=== PATIENT | male | born 1970 ===

== ENCOUNTER 2020-09-24 11:44 | Emergency (ER) | payer MEDICAID, SELFPAY ==
--- NOTE | ~2020-09-24 | XR_ITS ---
EXAMINATION: XR CHEST CLINICAL INFORMATION: Cough. COMPARISON: None TECHNIQUE: Frontal view of the chest was obtained. FINDINGS: Lungs are well-expanded and clear of acute process. The heart size and pulmonary vascularity is normal. There is change link plate stabilizing left clavicular fracture. Rest of the visualized bones are grossly unremarkable. XR/XR chest 1V IMPRESSION: Unremarkable chest exam.
--- NOTE | ~2020-09-24 | CT_ITS ---
EXAMINATION: CT ABDOMEN AND PELVIS WITHOUT CONTRAST CLINICAL INFORMATION: Gross hematuria COMPARISON: None TECHNIQUE: Multidetector volumetric imaging was performed from the superior aspect of the liver through the pubic symphysis. Sagittal and coronal reformatted images were obtained on the technologist's workstation. This CT examination was performed using dose optimization techniques as appropriate, variously including the following: *Automated exposure control *Adjustment of mA and/or kV according to patient size (this includes techniques or standardized protocols for targeted exams where dose is matched to indication/reason for exam; i.e. extremities or head) *Use of iterative reconstruction technique DLP: 5-5 mGy-cm FINDINGS: LUNG BASES: The visualized lung bases are unremarkable. LIVER, GALLBLADDER, AND BILIARY TREE: The liver is normal in size, shape, and attenuation. No focal hepatic lesion or biliary ductal dilatation is present. The gallbladder is unremarkable with no evidence of radiopaque gallstones, gallbladder wall thickening, or obvious pericholecystic inflammatory changes. PANCREAS: Unremarkable. SPLEEN: Unremarkable. ADRENAL GLANDS: Unremarkable. KIDNEYS AND URETERS: There are 2 tiny left renal stones measuring 1 mm in the upper and lower pole of the left kidney. No right renal stone is seen. No hydronephrosis, ureteral stone or ureteral dilatation is seen. BLADDER: Not optimally distended. There is question of mild diffuse bladder wall thickening. No bladder stone is seen. GASTROINTESTINAL TRACT: The small and large bowel are unremarkable. The appendix is unremarkable. ABDOMINAL WALL: There is a small left inguinal hernia containing fat. There is a small umbilical hernia containing fat. LYMPH NODES: Normal. VASCULAR: There is evidence of atherosclerotic disease. No aneurysm is seen. PELVIC VISCERA: Unremarkable. OSSEOUS STRUCTURES: There is a mild old-appearing L2 vertebral body compression fracture. CT/CT abdomen pelvis wo con IMPRESSION: 2 small nonobstructing left renal stones. Question mild diffuse bladder wall thickening.
[2020-09-24 11:59] VITALS: BP 144/87; PULSE 84; RESP 16; TEMP 36.6; O2SAT 94; BMI 29.0
--- NOTE | 2020-09-24 14:01 | ED_ITS ---
HPI - Male Genitourinary General Chief complaint: Urogenital-Male Stated complaint: blood in urine, swollen rt eye Time Seen by Provider: 09/24/20 12:06 Source: patient Mode of arrival: ambulatory History of Present Illness HPI Narrative: 50-year-old male with a past medical history of ETOH abuse drink about a pt daily presenting to the ED complaining of hematuria since yesterday with bright red clots. Denies taking anticoagulation. Also reports right eye erythema/soreness and greenish discharge x a couple days. Also reports getting over a cold with dry cough/congestion and wheezing. Denies fever, chills, chest pain/shortness of breath, abdominal pain, nausea/vomiting, dysuria, flank pain, testicular pain, visual change/loss, trauma Patient wears glasses not contacts Related Data Previous Rx's Medication Instructions Recorded albuterol sulfate 2 puff INHALATION Q4-6H PRN #6.7 g 09/24/20 cefuroxime axetil 250 mg PO BID 7 Days #14 tab 09/24/20 polymyxin B sulf-trimethoprim 1 drp OPHTHALMIC (EYE) Q4H 7 Days 09/24/20 [Polytrim] #10 ml Allergies Allergy/AdvReac Type Severity Reaction Status Date / Time UNKNOWN ANTIBIOTIC Allergy Unknown Hives Uncoded 09/24/20 12:04 Review of Systems Review of Systems: Constitutional: No Fever, No Chills, No Fatigue, No Malaise ENT/Mouth: No Ear Pain, + Nasal Congestion, No Sinus Pain, No sore throat, + Rhinorrhea, No Swallowing Difficulty Eyes: + Eye Pain, No Swelling, + Redness, No Foreign Body, + Discharge, No Vision Changes Cardiovascular: No Chest Pain, No SOB, No Edema Respiratory: + Cough, No Sputum, + Wheezing Gastrointestinal: No Nausea, No Vomiting, No Diarrhea, No Constipation, No Abdominal pain Genitourinary: + irregular bleeding, No Dysuria, No Urinary Frequency, + Hematuria, No Flank Pain, No Urinary Flow Changes Musculoskeletal: No joint pain, No Myalgias Skin: No Skin Lesions, No rash Neuro: No Weakness, No Numbness, No Dizziness, No Headache Yes all other systems are reviewed and are negative PMFSH Past Medical History Attestation statement: The following information was validated with the patient. Medical History (Updated 09/24/20 @ 17:04 by MYA Burkett) No known health problems Social History Social History Advance Directives: No Advance Directives Information Provided: No Physical Exam Vital Signs: Vital Signs: Last Vital Signs Temp 98.5 F 09/24/20 15:42 Pulse 80 09/24/20 15:42 Resp 14 09/24/20 15:42 BP 136/80 09/24/20 15:42 Pulse Ox 95 09/24/20 15:42 Body Mass Index 29.0 Const: General: cooperative, healthy appearing and no acute distress Orien tation/consciousness: patient oriented x3 Limitations: no limitations HENMT: Head: Yes normal to inspection Ears: hearing grossly normal bilaterally General nose exam: Normal external nose present Face and sinus: Yes normal facial exam Eyes: General: appearance normal, both eyes and all related structures Pe riorbital: periorbital findings normal Conjunctivae: conjunctival abnormal right conjunctival chemosis, conjunctival injection diffuse and discharge purulent; without subconjunctival hemmorhages Corneas: fluorescein used; normal corneas Pupils: Equal, round and reactive pupils present EOM: EOMs intact bilaterally Direct Ophthalmoscopy: normal light reflex and no photophobia Neck: Neck: Yes normal visual inspection and Yes no meningeal signs Resp: Effort & Inspection: normal respiratory effort Auscultation: clear to auscultation bilaterally and wheezes (Slight end-expiratory wheeze bibasilar) Cardio: Rate: regular rate Heart sounds: S1 normal heart sound present and S2 normal heart sound present GI: Inspection: Yes normal to inspection Palpation (GI): Soft to palpation, nontender, no guarding and not rigid : General: Yes no CVA tenderness Back/Spine/Pelvis: Back: no CVA tenderness Skin: Rashes: no rashes Wounds: no wounds Neuro: General: patient oriented x3, tone normal and no meningeal signs Cranial nerves: Yes Equal, round and reactive pupils present Gait exam (Neuro): Normal gait present Extrem: General: Yes normal to inspection Course Course Course Narrative: -no leukocytosis, H&H stable, coags WNL -UA with RBCs, not infected > will obtain CT to rule out obstruction/stone XR chest 1V IMPRESSION: Unremarkable chest exam. -COVID-19 negative -1657 CT abdomen pelvis wo con IMPRESSION: 2 small nonobstructing left renal stones. Question mild diffuse bladder wall thickening. >> discussed with patient including worrisome signs and symptoms and strict return precautions. Patient given 1st dose of Ceftin in the ED. He verbalized understanding & feels safe for discharge MDM - Male Genitourinary MDM Narrative Medical decision making narrative: 50-year-old male with a past medical history of ETOH abuse drink about a pt daily presenting to the ED complaining of hematuria since yesterday with bright red clots. Also reports right eye erythema/soreness and irritation x a couple days. On exam VS as, NAD, nontoxic, lungs with slight bibasilar end-expiratory wheeze. Right eye consistent with bacterial conjunctivitis, no evidence of fluorescein uptake. Urine dark/with hematuria, abdomen soft/nontender, no CVAT. Concern for HELIO vs rhabdo vs ?Renal stone although less likely without pain. Rule out other metabolic abnormalities. Rule out pneumonia vs viral syndrome/COVID-19. Plan: Labs, UA, CT NG, CXR, COVID-19 testing, neb treatment tx, fluorescein staining Lab Data Result diagrams: 09/24/20 15:13 09/24/20 15:13 Labs: Lab Results 09/24/20 09/24/20 09/24/20 Range/Units 15:08 15:08 15:08 WBC (4.8-10.8) X10*3/uL RBC (4.60-5.80) X10*6/uL Hgb (14.0-18.0) g/dl Hct (42-52) % MCV (80-98) fL MCH (27.0-33.0) pg MCHC (31.0-36.0) g/dl RDW (11.0-16.0) % Plt Count (160-400) X10*3/uL MPV (9.4-12.4) fL Immature Gran % (Auto) (0.0-0.4) % Neut % (Auto) (45-73) % Lymph % (Auto) (20-40) % [place] % (Auto) (2-11) % Eos % (Auto) (0-4) % Baso % (Auto) (0-2) % Lymph # (Auto) (1.2-4.9) X10*3/uL [place] # (Auto) (0.1-1.2) X10*3/uL Eos # (Auto) (0.0-0.4) X10*3/uL Baso # (Auto) (0.0-0.2) X10*3/uL Abs Immat Gran (auto) (0.00-0.03) X10*3/uL Absolute Neuts (auto) (2.0-8.3) X10*3/uL Absolute Nucleated RBC (0.0-0.012) X10*3/uL Nucleated RBC % (auto) (0.0-0.2) /100WBC PT (10.8-13.0) SEC INR (0.9-1.1) APTT (24.1-38.0) SEC Sodium (135-145) mmol/L Potassium (3.3-5.1) mmol/L Chloride (96-108) mmol/L Carbon Dioxide (22-29) mmol/L Anion Gap (12-20) BUN (9-16) mg/dL Creatinine (0.5-1.4) mg/dL Estim Creat Clear Calc Estimated GFR Random Glucose (60-115) mg/dL Calcium (8.4-10.2) mg/dL Magnesium (1.6-2.6) mg/dL Total Bilirubin (0.0-1.0) mg/dL Direct Bilirubin (0.0-0.5) mg/dL AST (5-37) U/L ALT (0-40) U/L Alkaline Phosphatase (39-117) U/L Total Creatine Kinase (38-174) U/L Total Protein (6.5-8.0) g/dL Albumin (3.5-5.0) g/dL Urine Color YELLOW Urine Appearance CLEAR Urine pH 6.0 (5.0-8.0) Ur Specific [place] 1.025 (1.005-1.025) Urine Protein 1+ H (NEG-TRACE) MG/DL Urine Glucose (UA) NEG (NEG) MG/DL Urine Ketones 40 (NEG) MG/DL Urine Blood 3+ H (NEG) Urine Nitrite NEG (NEG) Ur Leukocyte Esterase NEG (NEG) Urine RBC 10-14 H (0) /HPF Urine WBC 1-4 (0-4) /HPF Ur Squamous Epith Cells 1+ /LPF Urine Bacteria NONE /LPF Urine Opiates Screen Not Detected (Not Detect) Ur Barbiturates Screen Not Detected (Not Detect) Ur Phencyclidine Scrn Not Detected (Not Detect) Ur Amphetamines Screen Not Detected (Not Detect) U Benzodiazepines Scrn Not Detected (Not Detect) Urine Cocaine Screen Not Detected (Not Detect) U Marijuana (THC) Screen Not Detected (Not Detect) COVID-19 (CELESTE) Negative (Negative) COVID-19 Clin Com See Note 09/24/20 09/24/20 09/24/20 Range/Units 15:13 15:13 15:13 WBC 9.2 (4.8-10.8) X10*3/uL RBC 4.32 L (4.60-5.80) X10*6/uL Hgb 16.4 (14.0-18.0) g/dl Hct 46.4 (42-52) % MCV 107.4 H (80-98) fL MCH 38.0 H (27.0-33.0) pg MCHC 35.3 (31.0-36.0) g/dl RDW 13.8 (11.0-16.0) % Plt Count 291 (160-400) X10*3/uL MPV 9.0 L (9.4-12.4) fL Immature Gran % (Auto) 0.3 (0.0-0.4) % Neut % (Auto) 62.2 (45-73) % Lymph % (Auto) 26.0 (20-40) % [place] % (Auto) 8.5 (2-11) % Eos % (Auto) 2.2 (0-4) % Baso % (Auto) 0.8 (0-2) % Lymph # (Auto) 2.4 (1.2-4.9) X10*3/uL [place] # (Auto) 0.8 (0.1-1.2) X10*3/uL Eos # (Auto) 0.2 (0.0-0.4) X10*3/uL Baso # (Auto) 0.1 (0.0-0.2) X10*3/uL Abs Immat Gran (auto) 0.03 (0.00-0.03) X10*3/uL Absolute Neuts (auto) 5.7 (2.0-8.3) X10*3/uL Absolute Nucleated RBC 0.000 (0.0-0.012) X10*3/uL Nucleated RBC % (auto) 0.0 (0.0-0.2) /100WBC PT 11.5 (10.8-13.0) SEC INR 1.0 (0.9-1.1) APTT 32.6 (24.1-38.0) SEC Sodium 141 (135-145) mmol/L Potassium 4.2 (3.3-5.1) mmol/L Chloride 103 (96-108) mmol/L Carbon Dioxide 25 (22-29) mmol/L Anion Gap 17 (12-20) BUN 16 (9-16) mg/dL Creatinine 1.01 (0.5-1.4) mg/dL Estim Creat Clear Calc 87.7 Estimated GFR > 60 Random Glucose 92 (60-115) mg/dL Calcium 9.4 (8.4-10.2) mg/dL Magnesium 1.9 (1.6-2.6) mg/dL Total Bilirubin 0.8 (0.0-1.0) mg/dL Direct Bilirubin 0.3 (0.0-0.5) mg/dL AST 33 (5-37) U/L ALT 26 (0-40) U/L Alkaline Phosphatase 101 (39-117) U/L Total Creatine Kinase (38-174) U/L Total Protein 7.4 (6.5-8.0) g/dL Albumin 4.4 (3.5-5.0) g/dL Urine Color Urine Appearance Urine pH (5.0-8.0) Ur Specific [place] (1.005-1.025) Urine Protein (NEG-TRACE) MG/DL Urine Glucose (UA) (NEG) MG/DL Urine Ketones (NEG) MG/DL Urine Blood (NEG) Urine Nitrite (NEG) Ur Leukocyte Esterase (NEG) Urine RBC (0) /HPF Urine WBC (0-4) /HPF Ur Squamous Epith Cells /LPF Urine Bacteria /LPF Urine Opiates Screen (Not Detect) Ur Barbiturates Screen (Not Detect) Ur Phencyclidine Scrn (Not Detect) Ur Amphetamines Screen (Not Detect) U Benzodiazepines Scrn (Not Detect) Urine Cocaine Screen (Not Detect) U Marijuana (THC) Screen (Not Detect) COVID-19 (CELESTE) (Negative) COVID-19 Clin Com 09/24/20 Range/Units 15:13 WBC (4.8-10.8) X10*3/uL RBC (4.60-5.80) X10*6/uL Hgb (14.0-18.0) g/dl Hct (42-52) % MCV (80-98) fL MCH (27.0-33.0) pg MCHC (31.0-36.0) g/dl RDW (11.0-16.0) % Plt Count (160-400) X10*3/uL MPV (9.4-12.4) fL Immature Gran % (Auto) (0.0-0.4) % Neut % (Auto) (45-73) % Lymph % (Auto) (20-40) % [place] % (Auto) (2-11) % Eos % (Auto) (0-4) % Baso % (Auto) (0-2) % Lymph # (Auto) (1.2-4.9) X10*3/uL [place] # (Auto) (0.1-1.2) X10*3/uL Eos # (Auto) (0.0-0.4) X10*3/uL Baso # (Auto) (0.0-0.2) X10*3/uL Abs Immat Gran (auto) (0.00-0.03) X10*3/uL Absolute Neuts (auto) (2.0-8.3) X10*3/uL Absolute Nucleated RBC (0.0-0.012) X10*3/uL Nucleated RBC % (auto) (0.0-0.2) /100WBC PT (10.8-13.0) SEC INR (0.9-1.1) APTT (24.1-38.0) SEC Sodium (135-145) mmol/L Potassium (3.3-5.1) mmol/L Chloride (96-108) mmol/L Carbon Dioxide (22-29) mmol/L Anion Gap (12-20) BUN (9-16) mg/dL Creatinine (0.5-1.4) mg/dL Estim Creat Clear Calc Estimated GFR Random Glucose (60-115) mg/dL Calcium (8.4-10.2) mg/dL Magnesium (1.6-2.6) mg/dL Total Bilirubin (0.0-1.0) mg/dL Direct Bilirubin (0.0-0.5) mg/dL AST (5-37) U/L ALT (0-40) U/L Alkaline Phosphatase (39-117) U/L Total Creatine Kinase 132 (38-174) U/L Total Protein (6.5-8.0) g/dL Albumin (3.5-5.0) g/dL Urine Color Urine Appearance Urine pH (5.0-8.0) Ur Specific [place] (1.005-1.025) Urine Protein (NEG-TRACE) MG/DL Urine Glucose (UA) (NEG) MG/DL Urine Ketones (NEG) MG/DL Urine Blood (NEG) Urine Nitrite (NEG) Ur Leukocyte Esterase (NEG) Urine RBC (0) /HPF Urine WBC (0-4) /HPF Ur Squamous Epith Cells /LPF Urine Bacteria /LPF Urine Opiates Screen (Not Detect) Ur Barbiturates Screen (Not Detect) Ur Phencyclidine Scrn (Not Detect) Ur Amphetamines Screen (Not Detect) U Benzodiazepines Scrn (Not Detect) Urine Cocaine Screen (Not Detect) U Marijuana (THC) Screen (Not Detect) COVID-19 (CELESTE) (Negative) COVID-19 Clin Com Discharge Plan Discharge Clinical Impression: Hematuria, Bacterial conjunctivitis of right eye Patient Disposition: Home, Self-Care Instructions: Hematuria (ED) Additional Instructions: Your blood work was reassuring today in the ED Your CT scan showed 2 small stones and your left kidney, non complicated and did show bladder wall thickening, due to this I will treat you for a urinary tract infection, 2nd is an antibiotic, take as prescribed In addition have bacterial conjunctivitis, Polytrim are eyedrops, take as prescribed It is important for you to follow-up with her primary care doctor as well as a urologist If her symptoms persist or worsen, become more constant, have abdominal pain, chest pain, shortness breath please return to the ED Use inhaler as needed at home Prescriptions: New polymyxin B sulf-trimethoprim [Polytrim] 10,000 unit- 1 mg/mL drops 1 drp ophthalmic (eye) Q4H 7 Days Qty: 10 RF: 0 cefuroxime axetil 250 mg tablet 250 mg PO BID 7 Days Qty: 14 RF: 0 albuterol sulfate 90 mcg/actuation HFA aerosol inhaler 2 puff inhalation Q4-6H PRN (Reason: shortness of breath or wheezing) Qty: 6.7 RF: 0 Referrals: Socrates Mendoza MD [Physician] - 1 week Physician,Unknown [Primary Care Provider] - 2 days
[2020-09-24] MEDS: Albuterol Sulfate (0.083%) 2.5 MG/3 ML VIAL.NEB INHALE (14:22)
[2020-09-24 14:24] VITALS: PULSE 72; O2SAT 95
[2020-09-24 15:13] LABS: Glucose Urine UA NEG (NEG); Leukocyte Esterase Urine NEG (NEG); Nitrite Urine NEG (NEG); Specific Gravity - Urine 1.025 (1.005-1.025); Urine Blood 3+ (NEG); Urine Ketones 40 MG/DL (NEG); Urine Protein 1+ MG/DL (NEG-TRACE)
[2020-09-24] MEDS: Benzonatate 100 MG CAPSULE 200 MG PO (15:15)
[2020-09-24 15:18] LABS: MANUAL DIFF FLAG NO
[2020-09-24 15:19] LABS: Basophils Absolute Auto 0.1 X10*3/uL (0.0-0.2); Basophils Percent Auto 0.8 % (0-2); Eosinophils Absolute Auto 0.2 X10*3/uL (0.0-0.4); Eosinophils Percent Auto 2.2 % (0-4); Hematocrit 46.4 % (42-52); Hemoglobin 16.4 g/dl (14.0-18.0); Imm Gran Abs Auto 0.03 X10*3/uL (0.00-0.03); Imm Gran Pct Auto 0.3 % (0.0-0.4); Lymphocytes Absolute Auto 2.4 X10*3/uL (1.2-4.9); Mean Corpuscular HGB Conc 35.3 g/dl (31.0-36.0); Mean Corpuscular Volume 107.4 fL (80-98); Monocytes Absolute Auto 0.8 X10*3/uL (0.1-1.2); Monocytes Percent Auto 8.5 % (2-11); Neutrophils Absolute Auto 5.7 X10*3/uL (2.0-8.3); Neutrophils Percent Auto 62.2 % (45-73); Platelet Count 291 X10*3/uL (160-400); Red Blood Count 4.32 X10*6/uL (4.60-5.80); Red Cell Distribution Width 13.8 % (11.0-16.0); White Blood Count 9.2 X10*3/uL (4.8-10.8)
[2020-09-24 15:20] LABS: Appearance Urine CLEAR; Color Urine YELLOW
[2020-09-24] MEDS: Fluorescein Sodium STRIP 1 STRIP EYE-RIGHT (15:22)
[2020-09-24] MEDS: Tetracaine HCl/PF 0.5% Oph Sol 4 ML DROPS 3 DROP EYE-RIGHT (15:22)
[2020-09-24 15:24] LABS: Squamous Epithelial Cell Urine 1+ /LPF
[2020-09-24] MEDS: 0.9 % Sodium Chloride 1,000 ML 999 ML IVCONT ×2 (15:25)
[2020-09-24 15:33] LABS: COVID-19 Test Negative (Negative); IDNOW Serial# 9DD0AD1C
[2020-09-24 15:42] VITALS: BP 136/80; PULSE 80; RESP 14; TEMP 36.9; O2SAT 95
[2020-09-24 15:42] LABS: Prothrombin Time 11.5 SEC (10.8-13.0)
[2020-09-24 15:44] LABS: Partial Thromboplastin Time 32.6 SEC (24.1-38.0)
[2020-09-24 15:46] LABS: Amphetamine Screen Urine Not Detected (Not Detect); Barbiturates, Urine Not Detected (Not Detect); Benzodiazepines Screen Urine Not Detected (Not Detect); Cannabinoid Screen Urine Not Detected (Not Detect); Cocaine Screen Urine Not Detected (Not Detect); Opiate Screen Urine Not Detected (Not Detect); Phencyclidine Screen Urine Not Detected (Not Detect)
[2020-09-24 16:06] LABS: Alanine Aminotransferase 26 U/L (0-40); Albumin Level 4.4 g/dL (3.5-5.0); Alkaline Phosphatase 101 U/L (39-117); Anion Gap 17 (12-20); Aspartate Amino Transferase 33 U/L (5-37); Bilirubin Direct 0.3 mg/dL (0.0-0.5); Bilirubin Total 0.8 mg/dL (0.0-1.0); Blood Urea Nitrogen 16 mg/dL (9-16); Calcium 9.4 mg/dL (8.4-10.2); Carbon Dioxide 25 mmol/L (22-29); Chloride 103 mmol/L (96-108); Creatinine Clr Calc Pharmacy 87.7; Estimated Glomerular Filt Rate > 60; Glucose Random 92 mg/dL (60-115); Magnesium 1.9 mg/dL (1.6-2.6); Potassium 4.2 mmol/L (3.3-5.1); Sodium 141 mmol/L (135-145); Total Protein 7.4 g/dL (6.5-8.0)
== END 2020-09-24 17:16 | disposition home or self-care (01) ==
PROVIDERS: Physician Assistant; Emergency Provider Emergency Medicine
DX: R31.9 Hematuria, unspecified (principal); B99.9 Unspecified infectious disease; H10.89 Other conjunctivitis; F10.10 Alcohol abuse, uncomplicated; Z20.822 Contact with and (suspected) exposure to COVID-19
CPT/HCPCS: 36415; 71045; 74176; 80048; 80076; 80307; 81001; 82550; 83735; 85025; 85610; 85730; 87635; 94640; 96360; 99284

== ENCOUNTER 2022-11-24 11:59 | Emergency (ER) | payer OTHER, SELFPAY ==
--- NOTE | ~2022-11-24 | XR_ITS ---
Examination: Right ankle and right foot. CLINICAL INDICATION: Pain. COMPARISON: None. TECHNIQUE: Right foot 3 views. Right ankle 2 views. FINDINGS: Right ankle: The ankle mortise and subtalar joints are normal. There is no visible acute fracture, dislocation or subluxation. No soft tissue normality. Small calcaneal heel spur is seen. RIGHT FOOT: The visualized bones and joints are maintained normal. No visible fracture, dislocation or bony erosive changes. The soft tissues are normal. A small calcaneal heel enthesophyte is seen XR/XR foot RT 2V IMPRESSION: Small calcaneal heel enthesophyte. No visible acute fracture or dislocation right ankle right foot.
--- NOTE | ~2022-11-24 | XR_ITS ---
Examination: Right ankle and right foot. CLINICAL INDICATION: Pain. COMPARISON: None. TECHNIQUE: Right foot 3 views. Right ankle 2 views. FINDINGS: Right ankle: The ankle mortise and subtalar joints are normal. There is no visible acute fracture, dislocation or subluxation. No soft tissue normality. Small calcaneal heel spur is seen. RIGHT FOOT: The visualized bones and joints are maintained normal. No visible fracture, dislocation or bony erosive changes. The soft tissues are normal. A small calcaneal heel enthesophyte is seen XR/XR ankle RT 2V IMPRESSION: Small calcaneal heel enthesophyte. No visible acute fracture or dislocation right ankle right foot.
[2022-11-24 12:05] VITALS: BP 141/84; PULSE 95; RESP 18; TEMP 37.4; O2SAT 96; BMI 31.3
--- NOTE | 2022-11-24 12:08 | ED.GENADULT ---
HPI - General Adult General Chief complaint: Extremity Injury, Lower Stated complaint: R ankle fracture Time Seen by Provider: 11/24/22 12:38 Source: patient Mode of arrival: ambulatory Limitations: no limitations History of Present Illness HPI narrative: Patient is a 52-year-old male presenting to the emergency department with right lateral ankle and foot pain after jumping off 4-5 steps last night. Patient admits to drinking alcohol last night. States he has been able ambulate on his foot with some pain. Denies any numbness or tingling. MD complaint: right ankle pain Onset (ago): hour(s) Location: lower extremity Radiation: non-radiation Severity: moderate Quality: aching Pain Consistency: intermittent Relieving factors: rest Exacerbating factors: movement Associated symptoms: denies other symptoms Treatments prior to arrival: none Related Data Previous Rx's Medication Instructions Recorded albuterol sulfate 90 mcg/actuation 2 puff inhalation Q4-6H PRN 09/24/20 aerosol inhaler shortness of breath or wheezing #6.7 grams cefuroxime axetil 250 mg tablet 250 mg PO BID 7 days #14 tabs 09/24/20 polymyxin B sulfate 10,000 1 drp ophthalmic (eye) Q4H 7 days 09/24/20 unit-trimethoprim 1 mg/mL eye #10 mL drops (Polytrim) Allergies Allergy/AdvReac Type Severity Reaction Status Date / Time UNKNOWN ANTIBIOTIC Allergy Unknown Hives Uncoded 09/24/20 12:04 Review of Systems Review of Systems: As per HPI. Yes all other systems are reviewed and are negative Constitutional: Constitutional: Reports as per HPI [facility] Past Medical History Medical History (Updated 11/24/22 @ 14:14 by Judy Mi NP) No known health problems Social History Social History Advance Directives: No Advance Directives Information Provided: Yes Physical Exam ED Vital Signs: Vital Signs - 24 hr 11/24/22 12:05 Temperature 99.4 F Pulse Rate 95 Respiratory Rate 18 Blood Pressure 141/84 H Pulse Oximetry 96 Oxygen Delivery Method Room Air BMI result Body Mass Index 31.3 Vital signs have been reviewed and appear to be correct. Blood pressure normal. Heart rate normal. Respiratory rate normal. Temperature normal. Oxygen saturation normal. Const General: cooperative, healthy appearing and no acute distress Orientation/consciousness: oriented to person, oriented to place, oriented to time and patient oriented x3 Limitations: no limitations [facility] Head: Yes normocephalic and Yes atraumatic Ears: external ears normal General nose exam: Normal external nose present Face and sinus: Yes face symmetric Mouth: oropharynx normal and moist mucous membranes Throat: Yes uvula midline Eyes Pupils: Equal, round and reactive pupils present Neck Neck: Yes normal visual inspection and Yes supple Resp Effort & Inspection: normal respiratory effort and able to speak in complete sentences Auscultation: clear to auscultation bilaterally Cardio Rate: regular rate Rhythm: regular rhythm Heart sounds: S1 normal heart sound present and S2 normal heart sound present GI Palpation (GI): Soft to palpation and nontender Auscultation: normoactive bowel sounds General: Yes no CVA tenderness Back/Spine/Pelvis Back: no CVA tenderness Skin General skin exam: elasticity normal and turgor normal Neuro General: oriented to person, oriented to place, oriented to time, patient oriented x3, moves all extremities, no focal motor deficits and CN's II-XI intact bilaterally Cranial nerves: Yes Equal, round and reactive pupils present Cognition (Neuro): normal cognition Extrem General: Yes full ROM, Yes no pedal edema and Yes no calf tenderness Right lower extremity: ankle Details: tenderness Location: of the lateral malleolus and foot Details: normal capillary refill, tenderness Location: of the dorsal foot Location: laterally, toes with normal ROM, ecchymosis dorsal lateral mid , vascular exam Details: dorsalis pedis pulse present and posterior tibial pulse present and motor-sensory exam Details: two point discrimination normal and light-touch normal; no abrasion and no crepitus Psych Mental Status: mental status grossly normal Affect: normal affect Thought process: Normal thought process present Course Course Course Narrative: RME: 52 yold male presents to the ED for right ankle pain. patient states he jumped from 4 stairs up and landed on right foot and hear crack in right ankle. patient denies hitting head, loss of consciosuness, or body trauma. patient states he was playing game with girlfriend and jumped to suprise her. Xray of right ankle and foot ordered Medical Decision Making Medical Decision Making MDM Narrative: Patient is a 52-year-old male presenting to the emergency department with right lateral ankle and foot pain after jumping off 4-5 steps last night. On exam patient is awake, A+Ox3, VS WNL, afebrile, normal neurological exam without focal deficits, mild swelling to right lateral ankle, tenderness to lateral malleolus and foot with ecchymosis and tenderness to dorsal lateral aspect of right foot, full range of motion all toes, 2+ DP and PT pulses. Given reported symptoms and physical exam findings, initial differential includes fracture, strain, sprain, contusion. X-ray notable for no acute fracture or dislocation. My interpretation is in agreement with the radiologist's interpretation. Feel symptoms are likely related to an ankle sprain and muscle strain of right foot. Advised patient to keep foot elevated at rest, apply ice for 10-15 minutes at a time several times daily. [place] wrap applied in the emergency department. Can use Tylenol or ibuprofen as needed for discomfort. Will refer patient to Orthopedics for any symptoms persisting past the next 1-2 weeks. Return precautions discussed at bedside. Patient verbalized understanding of and agreement with plan. Differential Diagnosis Differential Diagnoses: The differential diagnosis associated with the presentation includes As per MDM. Independent Interpretation I performed an independent interpretation of an: Plain X-Ray Interpretation: No fracture dislocation right foot or ankle Radiology Impression Discussion of test interpretation with radiology: I have reviewed the radiologist's reading. Radiologist Impression: XR/XR ankle RT 2V IMPRESSION: Small calcaneal heel enthesophyte. No visible acute fracture or dislocation right ankle right foot. External Record Review External record reviewed: Inpatient record, Office record and Outpatient record Discharge Plan Discharge Clinical Impression: Right ankle sprain, Muscle strain of right foot Patient Disposition: Home, Self-Care Instructions: Ankle Sprain (DC), How to Use an Elastic Bandage (ED), R.I.C.E. Treatment (ED) Additional Instructions: You have been evaluated in the emergency department today for right ankle and foot pain. Your evaluation did not find evidence of medical conditions requiring emergent intervention at this time. We have provided an [place] wrap for you to use while your ankle heals. Please rest, ice, and elevate your ankle, and resume normal activities as tolerated. We recommend you take 600mg ibuprofen every 6 hours or 650mg Tylenol every 6 hours as needed for pain. If needed you can alternate these medications as they take 1 medication every 3 hours. For instance at noon take ibuprofen, then at 3:00 p.m. take Tylenol, then at 6:00 p.m. take ibuprofen. Please schedule an appointment for follow-up with your primary care provider this week. Return to the emergency department if you experience worsening pain, numbness, tingling, change of color in your foot, or any other concerning symptoms. Please follow-up with the orthopedic office if your symptoms persist past the next 1-2 weeks. Prescriptions: No Action polymyxin B sulf-trimethoprim [Polytrim] 10,000 unit- 1 mg/mL drops 1 drp ophthalmic (eye) Q4H 7 Days Qty: 10 0RF Rx Instructions: while awake; do not exceed 6 doses in 24 hours cefuroxime axetil 250 mg tablet 250 mg PO BID 7 Days Qty: 14 0RF albuterol sulfate 90 mcg/actuation HFA aerosol inhaler 2 puff inhalation Q4-6H PRN (Reason: shortness of breath or wheezing) Qty: 6.7 0RF Referrals: [facility] [place] [facility] [Provider Group] Interventions: ED Discharge Assessment Last Done: 11/24/22 14:30 Discharge Date/Time: 11/24/22 14:30
== END 2022-11-24 14:30 | disposition home or self-care (01) ==
PROVIDERS: Emergency Provider Emergency Medicine
DX: S93.401A Sprain of unspecified ligament of right ankle, initial encounter (principal); S96.911A Strain of unspecified muscle and tendon at ankle and foot level, right foot, initial encounter; M25.571 Pain in right ankle and joints of right foot; X58.XXXA Exposure to other specified factors, initial encounter; Y93.9 Activity, unspecified; Y92.9 Unspecified place or not applicable; Y99.9 Unspecified external cause status; Z79.899 Other long term (current) drug therapy
CPT/HCPCS: 73600; 73620; 99282; 99283

== ENCOUNTER 2023-06-03 17:26 | Observation (INO) | payer OTHER, SELFPAY ==
--- NOTE | ~2023-06-03 | MR_ITS ---
EXAMINATION: MR BRAIN WITHOUT AND WITH CONTRAST CLINICAL INFORMATION: Question stroke versus intracranial neoplasm. COMPARISON: CT dated 06/03/2023. TECHNIQUE: Multiplanar, multisequence imaging of the brain was performed before and after the intravenous administration of 10 mL of Gadavist. FINDINGS: There is chronic encephalomalacia and mild laminar necrosis in the inferior left occipital lobe. No mass effect or pathologic enhancement otherwise visible. No diffusion abnormalities are identified to suggest an acute infarct. The ventricles are normal in size. No mass effect or midline shift is seen. Minimal scattered white matter signal changes are visible. No extra-axial fluid collections are seen. The brainstem and cerebellum are normal. There is no abnormal parenchymal or leptomeningeal enhancement. The gradient refocused acquisition is normal. The craniovertebral junction, marrow signal, and midline structures are normal. The major intracranial flow voids at the level of the [place] are preserved. The dural venous sinus flow voids are maintained. There is trace fluid in the mastoid air cells. Significant ethmoid sinus mucosal disease noted bilaterally with milder mucosal thickening elsewhere in the paranasal sinuses. MR/MR head/brain wo/w con IMPRESSION: No acute process. 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 Severe ethmoid sinus mucosal disease. Mild mucosal thickening and dependent fluid level in the right maxillary antrum.
--- NOTE | ~2023-06-03 | CT_ITS ---
EXAMINATION: CT ANGIOGRAM HEAD CT ANGIOGRAM NECK CLINICAL INFORMATION: Reason for Exam Geoffrey's (left pupil small), MOHAN, occip infarct COMPARISON: Same-day CT head TECHNIQUE: Initial noncontrast machine joiner cementer imaging of the head and neck was performed. Comparison is made with noncontrast head CT from earlier today. Test bolus sequences followed by intravenous administration 65 mL of Omnipaque 350. Helical imaging was performed in the axial plane from the aortic arch to the skull vertex. Delayed postcontrast imaging of the head was also performed. The data was processed at the cat scan technologist's workstation for generation of MIP sequences. Angled MIPs and volume rendered reformatted images were also generated at an offline 3D workstation. Stenoses are assessed in accordance with Narvaez et al. Quantification of Carotid Stenosis on CT Angiography. AJR 2006. 27(1):13-19. [address] CT examination was performed using dose optimization techniques as appropriate, variously including the following: *Automated exposure control *Adjustment of mA and/or kV according to patient size (this includes techniques or standardized protocols for targeted exams where dose is matched to indication/reason for exam; i.e. extremities or head) *Use of iterative reconstruction technique DLP: 1664.65 mGy-cm mGy-cm FINDINGS: CT HEAD: Redemonstrated hypodensity in the left cerebellar hemisphere which may represent an area of subacute infarction. No depressed calvarial fracture. Chronic deformity of the right zygomatic arch. Polypoid mucosal thickening in the paranasal sinuses with near complete opacification of the anterior ethmoid air cells. Trace opacification of the right mastoid tip. Please see separately dictated CT scan of the head for additional findings. CTA HEAD: Anterior circulation: Right internal carotid artery: Atherosclerosis without flow-limiting stenosis. Right middle cerebral artery: No hemodynamically significant stenosis. Right anterior cerebral artery: No hemodynamically significant stenosis. Left internal carotid artery: Atherosclerosis without flow-limiting stenosis. There is mild nonspecific circumferential narrowing at the distal cervical segment extending into the petrous segment which may be secondary to atherosclerosis or sequela of prior injury.. Left middle cerebral artery: No hemodynamically significant stenosis. Left anterior cerebral artery: No hemodynamically significant stenosis. Posterior circulation: Right vertebral artery: No hemodynamically significant stenosis. Left vertebral artery: No hemodynamically significant stenosis. Basilar artery: No hemodynamically significant stenosis. Right posterior cerebral artery: No hemodynamically significant stenosis. Left posterior cerebral artery: No hemodynamically significant stenosis. No high flow vascular malformation or significant aneurysmal dilatation is visualized. The left transverse and sigmoid sinuses are likely congenitally small in caliber. CTA NECK: Aortic arch: Normal anatomy. Right common carotid artery: No hemodynamically significant stenosis. Right proximal internal carotid artery: Atherosclerosis without flow-limiting stenosis. Right mid/distal internal carotid artery: No hemodynamically significant stenosis. Left common carotid artery: No hemodynamically significant stenosis. Left proximal internal carotid artery: Atherosclerosis without flow-limiting stenosis. There is severe narrowing in the proximal left external carotid artery. Left mid/distal internal carotid artery: No hemodynamically significant stenosis. Right vertebral artery: No hemodynamically significant stenosis. Left vertebral artery: Mild to moderate narrowing at the origin. The remaining cervical course is without flow-limiting stenosis. CT NECK: Mild emphysematous changes of the lung apices. Fixation hardware along the left clavicle. [place] tonsilliths are noted. Paranasal sinus polypoid mucosal thickening. Multilevel degenerative changes of the cervical spine. CT/CT angio head neck IMPRESSION: CT HEAD: Redemonstrated age indeterminate loss of ho-white differentiation in the left occipital lobe. Correlation with MRI is recommended. CTA NECK: Severe narrowing at the left external carotid artery origin. Otherwise, no flow-limiting stenosis in the common carotid arteries, internal carotid arteries, and cervical vertebral arteries. CTA HEAD: No proximal vessel occlusion or high-grade stenosis.
--- NOTE | ~2023-06-03 | CT_ITS ---
EXAMINATION: CT HEAD WITHOUT CONTRAST CLINICAL INFORMATION: New onset headache for one week. COMPARISON: None TECHNIQUE: Contiguous axial imaging was performed from the skull base to vertex without intravenous administration of contrast. This CT examination was performed using dose optimization techniques as appropriate, variously including the following: *Automated exposure control *Adjustment of mA and/or kV according to patient size (this includes techniques or standardized protocols for targeted exams where dose is matched to indication/reason for exam; i.e. extremities or head) *Use of iterative reconstruction technique DLP: 707 mGy-cm FINDINGS: Age indeterminate hypodensity in the left occipital lobe measuring up to 5 cm. No significant associated mass effect. No intraparenchymal bleed. A few foci of hypoattenuation in the periventricular and deep white matter are consistent with mild microangiopathy. Proportional prominence of the ventricles and sulcal spaces. No evidence for obstructive hydrocephalus. No abnormal mass effect or midline shift. No extra-axial fluid collections. No acute soft tissue or osseous abnormalities. Partial opacification of several ethmoid air cells. Mild mucosal thickening of the paranasal sinuses. No air-fluid levels. The mastoids and middle ear cavities are clear. CT/CT head/brain wo IV con IMPRESSION: 1. Age indeterminate hypodensity in the left occipital lobe, possibly representing an infarct versus less likely intracranial neoplasm. Recommend further characterization with an MRI of the brain. 2. No intraparenchymal bleed. No extra-axial collection. 3. Mild chronic microangiopathy and generalized cerebral volume loss. 4. Paranasal sinus disease. This critical result was discussed with Judy Mi NP at 06/03/2023 6:31 PM and it was ascertained that the content and urgency of the report was understood at the time of direct communication.
[2023-06-03 17:29] VITALS: BP 127/77; PULSE 85; RESP 20; TEMP 37; O2SAT 97; BMI 32.3
--- NOTE | 2023-06-03 17:33 | ED.GENADULT ---
HPI - General Adult General Chief complaint: Headache Stated complaint: headache x 1 week Time Seen by Provider: 06/03/23 20:45 History of Present Illness HPI narrative: The patient is a 53-year-old male who comes to the emergency room stating that he has had a headache for the last week. He feels this mostly on the left side of his head. He feels the headache in the left temporal region and often in the region of the left eye. He does not have a history of headaches. He has had associated light sensitivity. He denies any visual symptoms. He denies any weakness or numbness in his extremities. He denies any difficulty speaking. He denies any difficulty walking. No fever, sweats, chills. No chest pain or shortness of breath. No cough or sputum. The patient is not on any medications. He says he is a recovering alcoholic and does not take any medications or drugs. He identifies his primary care office as [facility] in [place] but he can not name a primary care doctor. The patient says that about 2 months ago he went to the emergency room at [facility] for some left arm numbness. He says that he was told that he had a stroke at the time. He says he was not hospitalized and was not started any medications as a result of this report. Related Data Previous Rx's Medication Instructions Recorded albuterol sulfate 90 mcg/actuation 2 puff inhalation Q4-6H PRN 09/24/20 aerosol inhaler shortness of breath or wheezing #6.7 grams cefuroxime axetil 250 mg tablet 250 mg PO BID 7 days #14 tabs 09/24/20 polymyxin B sulfate 10,000 1 drp ophthalmic (eye) Q4H 7 days 09/24/20 unit-trimethoprim 1 mg/mL eye #10 mL drops (Polytrim) Allergies Allergy/AdvReac Type Severity Reaction Status Date / Time UNKNOWN ANTIBIOTIC Allergy Unknown Hives Uncoded 06/03/23 17:31 Review of Systems Review of Systems: Yes all other systems are reviewed and are negative PMFSH Past Medical History Medical History (Updated 06/03/23 @ 23:03 by Momo Daniel MD) No known health problems Social History Social History Alcohol intake: former Smoked in Last 30 Days: Yes Use of substances other than those prescribed or required for medical reasons: No Advance Directives: No Advance Directives Information Provided: No Physical Exam ED Vital Signs: Vital Signs - 24 hr 06/03/23 17:29 06/03/23 19:40 Temperature 98.6 F 97.9 F Pulse Rate 85 77 Respiratory Rate 20 15 Blood Pressure 127/77 121/68 Pulse Oximetry 97 96 Oxygen Delivery Method Room Air Room Air BMI result Body Mass Index 32.3 Const Other: The patient is awake and alert. He looks old for his age. He does not seem in obvious distress. He is pleasant cooperative. HENMT Other: Face is symmetrical. Tongue is midline. Eyes Other: Anisocoria is present. The right pupil is larger than the left pupil. This is more apparent in dark light. With bright lights both pupils are small. The left pupil does not seem to dilate with darkness. No apparent ptosis. Extraocular movements are intact. Visual marinelli are intact to confrontation Neck Other: No JVD, no neck tenderness, no bruits Resp Effort & Inspection: normal respiratory effort Auscultation: clear to auscultation bilaterally Cardio Rate: regular rate Rhythm: regular rhythm Heart sounds: S1 normal heart sound present and S2 normal heart sound present GI Other: Abdomen is soft and nontender Skin Other: Skin is soft and nontender Neuro Other: The patient is awake, alert, oriented, and appropriate. Mental status is clear and normal. The patient has anisocoria. The left pupil is smaller than the right. This is most apparent in a dark room. With the bright lights both pupils are small. Eye movements are intact. Visual marinelli are intact to confrontation. No visual field deficit is appreciated. The face is symmetrical. Speech is clear and normal. 5/5 strength in extremities. Coordination is normal in upper and lower extremities. Sensation is intact. NIH stroke scale is 0 Extrem Other: No peripheral edema Course Course Course Narrative: This is a rapid medical exam: Additional HPI, ROS, PE not included below will be deferred to primary provider. Patient is a 53-year-old male with history of chronic alcohol use presenting to the ED with complaint of new onset left sided headache for the past week. States pain is always there but he gets surges of pain to left confucianist. Denies any history of headaches previously. Plan: CT head 6:31 Received call from radiologist noting age indeterminate hypodensity to left occipital lobe. stacker operator notified and patient brought into room in main ED. Medications Administered Discontinued Medications Generic Name Dose Route Start Last Admin Trade Name Tho PRN Reason Stop Dose Admin Diphenhydramine HCl 25 mg 06/03/23 21:12 06/03/23 21:26 Diphenhydramine Hcl 50 Mg/Ml Vial IVPUSH 06/03/23 21:13 25 mg ONCE ONE Administration Sodium Chloride 1,000 mls @ 999 mls/hr 06/03/23 21:15 06/03/23 21:27 Ns IV 06/03/23 22:15 999 mls/hr .Q1H1M FIONA Administration Iohexol 100 ml 06/03/23 21:49 06/03/23 21:50 Iohexol 350 Mg/Ml 100 Ml Infus..Btl IV 06/03/23 21:50 70 ml ONCE ONE Administration Prochlorperazine Edisylate 10 mg 06/03/23 21:12 06/03/23 21:27 Prochlorperazine Edisylate 10 Mg/2 Ml Vial IVPUSH 06/03/23 21:13 10 mg ONCE ONE Administration Medical Decision Making Medical Decision Making [facility] Narrative: The patient is a 53-year-old male with a history of alcohol use disorder who presents with a left-sided headache that has been present for a week and which is associated with photophobia. He feels the headache primarily behind his left eye. The patient's description of the headache syndrome certainly seems most consistent with a migraine although the patient does not have a history of migraines. A noncontrast head CT had been ordered at triage. This came back showing a 5 cm left occipital hypodensity of indeterminate age. MRI was recommended. On my exam the patient has an NIH stroke scale of 0 but has an abnormally small left pupil. The pupil does not dilate in a darkened room. This was potentially suggestive of a Geoffrey syndrome. I obtained CT angiogram of the head and neck to ensure there was no left carotid artery dissection. The angiogram shows no dissection but there is severe narrowing of the left proximal external carotid artery. Although the patient's clinical presentation seems most likely consistent with a migraine headache I find the patient is CT findings and his pupillary exam sufficiently concerning that I feel hospitalization for an MRI and Neurology consult would be reasonable. The patient seemed to feel somewhat better after a dose of prochlorperazine and diphenhydramine. He is amenable to hospitalization for further evaluation. Lab Data 06/03/23 21:25 06/03/23 21:25 Labs: Lab Results 06/03/23 Range/Units 21:25 WBC 8.7 (4.8-10.8) X10*3/uL RBC 5.20 (4.60-5.80) X10*6/uL Hgb 16.8 (14.0-18.0) g/dl Hct 48.7 (42.0-52.0) % MCV 93.7 (80.0-98.0) fL MCH 32.3 (27.0-33.0) pg MCHC 34.5 (31.0-36.0) g/dl RDW 15.9 (11.0-16.0) % Plt Count 277 (160-400) X10*3/uL MPV 8.5 L (9.4-12.4) fL Immature Gran % (Auto) 0.3 (0.0-0.4) % Neut % (Auto) 49.1 (45-73) % Lymph % (Auto) 36.9 (20-40) % [place] % (Auto) 7.2 (2-11) % Eos % (Auto) 5.8 H (0-4) % Baso % (Auto) 0.7 (0-2) % Lymph # (Auto) 3.2 (1.2-4.9) X10*3/uL [place] # (Auto) 0.6 (0.1-1.2) X10*3/uL Eos # (Auto) 0.5 H (0.0-0.4) X10*3/uL Baso # (Auto) 0.1 (0.0-0.2) X10*3/uL Abs Immat Gran (auto) 0.03 (0.00-0.03) X10*3/uL Absolute Neuts (auto) 4.3 (2.0-8.3) x10*3/uL Absolute Nucleated RBC 0.000 (0.0-0.012) X10*3/uL Nucleated RBC % (auto) 0.0 (0.0-0.2) /100WBC ESR 4 (0-15) MM/HR Sodium 141 (135-145) mmol/L Potassium 4.0 (3.3-5.1) mmol/L Chloride 106 (96-108) mmol/L Carbon Dioxide 25 (22-29) mmol/L Anion Gap 14 (12-20) BUN 7 L (9-16) mg/dL Creatinine 0.83 (0.5-1.4) mg/dL Estim Creat Clear Calc 108.5 Estimated GFR > 60 Random Glucose 67 (60-115) mg/dL Calcium 9.1 (8.4-10.2) mg/dL Magnesium 1.9 (1.6-2.6) mg/dL Total Bilirubin 0.4 (0.0-1.0) mg/dL Direct Bilirubin 0.2 (0.0-0.5) mg/dL AST 18 (5-37) U/L ALT 15 (0-40) U/L Alkaline Phosphatase 77 (39-117) U/L Troponin I High Sens < 2.7 (<3.5-35.0) ng/L C-Reactive Protein 0.34 (< or = 0.50) mg/dL B-Natriuretic Peptide < 10 (<100) pg/mL Total Protein 7.2 (6.5-8.0) g/dL Albumin 4.2 (3.5-5.0) g/dL Independent Interpretation I performed an independent interpretation of an: EKG Interpretation: EKG at 21:18 shows normal sinus rhythm with sinus arrhythmia at 76 beats per minute. No acute findings. No old EKGs for comparison. Critical Care Time Critical Care Time Critical Care Time: Yes Total Critical Care Time: 45 Attestation: The patient was critically ill with a high probability of imminent or life-threatening deterioration. ?I spent greater than 30 minutes of discontinuous time evaluating the patient, delivering critical care at the bedside, discussing evaluating data with consultants. ?Critical care time does not include time spent performing separately billable procedures or teaching. ?Time spent performing critical care with 45 minutes. Discharge Plan Discharge Patient Disposition: Admitted As Inpatient Prescriptions: No Action polymyxin B sulf-trimethoprim [Polytrim] 10,000 unit- 1 mg/mL drops 1 drp ophthalmic (eye) Q4H 7 Days Qty: 10 0RF Rx Instructions: while awake; do not exceed 6 doses in 24 hours cefuroxime axetil 250 mg tablet 250 mg PO BID 7 Days Qty: 14 0RF albuterol sulfate 90 mcg/actuation HFA aerosol inhaler 2 puff inhalation Q4-6H PRN (Reason: shortness of breath or wheezing) Qty: 6.7 0RF
[2023-06-03 19:40] VITALS: BP 121/68; PULSE 77; RESP 15; TEMP 36.6; O2SAT 96
--- NOTE | 2023-06-03 19:47 | PC.NURSE ---
this rn assumed care of pt. pt reporting onset of a constant headache that radiates intermittently down the back of neck. reports intermittent eye pain and pressure with photosensitivity. pt noted to have symmetrical face, equal hand grasps, equal leg raises. positive cms. vss.
--- NOTE | 2023-06-03 21:11 | ECG_ITS ---
Test Reason : HEADACHE Blood Pressure : / mmHG Vent. Rate : 076 BPM Atrial Rate : 076 BPM P-R Int : 168 ms QRS Dur : 082 ms QT Int : 356 ms P-R-T Axes : 073 035 042 degrees QTc Int : 400 ms Normal sinus rhythm with sinus arrhythmia Low voltage QRS Borderline ECG No previous ECGs available Referred By: Momo Daniel Electronically Signed By:JUDY BARTHOLOMEW
[2023-06-03] MEDS: diphenhydrAMINE HCL 50 MG/ML VIAL 25 MG IVPUSH (21:26)
[2023-06-03] MEDS: Prochlorperazine Edisylate 10 MG/2 ML VIAL IVPUSH (21:27)
[2023-06-03] MEDS: 0.9 % Sodium Chloride 1,000 ML 999 ML IV (21:27)
[2023-06-03 21:30] LABS: MANUAL DIFF FLAG NO
[2023-06-03 21:31] LABS: Basophils Absolute Auto 0.1 X10*3/uL (0.0-0.2); Basophils Percent Auto 0.7 % (0-2); Eosinophils Absolute Auto 0.5 X10*3/uL (0.0-0.4); Eosinophils Percent Auto 5.8 % (0-4); Hematocrit 48.7 % (42.0-52.0); Hemoglobin 16.8 g/dl (14.0-18.0); Imm Gran Abs Auto 0.03 X10*3/uL (0.00-0.03); Imm Gran Pct Auto 0.3 % (0.0-0.4); Lymphocytes Absolute Auto 3.2 X10*3/uL (1.2-4.9); Lymphocytes Percent Auto 36.9 % (20-40); Mean Corpuscular HGB Conc 34.5 g/dl (31.0-36.0); Mean Corpuscular Hemoglobin 32.3 pg (27.0-33.0); Mean Corpuscular Volume 93.7 fL (80.0-98.0); Mean Platelet Volume 8.5 fL (9.4-12.4); Monocytes Absolute Auto 0.6 X10*3/uL (0.1-1.2); Monocytes Percent Auto 7.2 % (2-11); Neutrophils Absolute Auto 4.3 x10*3/uL (2.0-8.3); Neutrophils Percent Auto 49.1 % (45-73); Platelet Count 277 X10*3/uL (160-400); Red Cell Distribution Width 15.9 % (11.0-16.0); White Blood Count 8.7 X10*3/uL (4.8-10.8)
--- NOTE | 2023-06-03 21:32 | PC.NURSE ---
20G placed in left AC. provider at bedside discussing pt care, pt noted to have left pupil smaller than right upon inspection of pupils, provider aware. pt medicated per mar.
--- NOTE | 2023-06-03 21:37 | PC.NURSE ---
pt to CT at this time.
[2023-06-03 21:50] LABS: Alanine Aminotransferase 15 U/L (0-40); Albumin Level 4.2 g/dL (3.5-5.0); Alkaline Phosphatase 77 U/L (39-117); Anion Gap 14 (12-20); Aspartate Amino Transferase 18 U/L (5-37); Bilirubin Direct 0.2 mg/dL (0.0-0.5); Bilirubin Total 0.4 mg/dL (0.0-1.0); Blood Urea Nitrogen 7 mg/dL (9-16); C Reactive Protein 0.34 mg/dL (< or = 0.50); Calcium 9.1 mg/dL (8.4-10.2); Carbon Dioxide 25 mmol/L (22-29); Chloride 106 mmol/L (96-108); Creatinine Clr Calc Pharmacy 108.5; Estimated Glomerular Filt Rate > 60; Glucose Random 67 mg/dL (60-115); Magnesium 1.9 mg/dL (1.6-2.6); Sodium 141 mmol/L (135-145); Total Protein 7.2 g/dL (6.5-8.0)
[2023-06-03] MEDS: iohexoL 350 MG/ML 100 ML INFUS..BTL IV (21:50)
[2023-06-03 21:55] LABS: B Type Natriuretic Peptide < 10 pg/mL (<100)
[2023-06-03 22:00] VITALS: BP 132/72; PULSE 89; RESP 18; TEMP 37; O2SAT 98
[2023-06-03 22:07] LABS: Troponin-I High Sensitivity < 2.7 ng/L (<3.5-35.0)
[2023-06-03 22:10] LABS: Erythrocyte Sedimentation Rate 4 MM/HR (0-15)
--- NOTE | 2023-06-03 22:55 | PM.IMHP ---
History of Present Illness Date of Service: 06/03/23 Chief Complaint: Headache This is a 53-year-old male with pertinent history of mild stroke , alcohol use disorder but not on any prescription medications who presents to the emergency department for evaluation of headache. Patient states he has been having left-sided headache that started 1 week prior to presentation. It has been constant and progressive over the last 7 days. No history of similar headaches previously. Also has associated nausea and sensitivity to bright light. He denies any visual symptoms. No focal extremity weakness. No speech deficits or facial droop. Patient states that about 2 months ago, in March 2023 he was at [facility] and he was diagnosed with minor stroke but he was not discharged on any prescription medications. Patient states he was sober since March but had 1 drink 1 day prior to presentation. Does not feel like he would withdrawal from alcohol. Denies illicit drug use. No fever, chills, chest discomfort, palpitations, shortness of breath, abdominal pain, changes in urinary or bowel habits. In the emergency department, imaging with hypodensity in the left occipital lobe, infarct versus intracranial neoplasm. CTA with narrowing at the left external carotid artery origin. Review of Systems Constitutional: Constitutional: Reports no additional constitutional complaints and Reports headache(s) ENT: Reports headache(s) Cardiovascular: Cardiovascular: Reports no additional cardiovascular complaints Respiratory: Respiratory: Reports no additional respiratory complaints Gastrointestinal: Gastrointestinal: Reports no additional gastrointestinal complaints Genitourinary: Genitourinary: Reports no additional male genitourinary complaints Neurologic: Reports headache(s) Comments: Positive for photophobia [facility] Medical History Alcohol use disorder No known health problems Pertinent family history: No family history of early CAD Social History Alcohol intake: former Smoked in Last 30 Days: Yes Use of substances other than those prescribed or required for medical reasons: No Advance Directives: No Advance Directives Information Provided: No Meds Allergies Allergy/AdvReac Type Severity Reaction Status Date / Time UNKNOWN ANTIBIOTIC Allergy Unknown Hives Uncoded 06/03/23 17:31 Physical Exam Vital Signs and Narrative: Vital Signs: Last Vital Signs Temp 98.6 F 06/03/23 22:00 Pulse 89 06/03/23 22:00 Resp 18 06/03/23 22:00 BP 132/72 06/03/23 22:00 Pulse Ox 98 06/03/23 22:00 O2 Del Method Room Air 06/03/23 22:00 BMI result Body Mass Index 32.3 Middle-aged male lying in bed in no distress Neck supple, no JVD Regular rate and rhythm, S1-S2 heard Regular breath sounds bilaterally, no wheezing or crackles appreciated Abdomen soft nontender, no guarding, no rigidity Patient is awake, alert and oriented to self, place, time and person ; no pronator drift, strength 4/5 in bilateral upper and lower extremity, no nystagmus, no facial droop, tongue and uvula midline, no speech deficit, normal shoulder shrug Psych: Normal mood No pedal edema Results Labs 06/03/23 21:25 06/03/23 21:25 Labs: Laboratory Results - last 24 hr 06/03/23 21:25 MCV 93.7 MCH 32.3 MCHC 34.5 RDW 15.9 Plt Count 277 MPV 8.5 L Immature Gran % (Auto) 0.3 Neut % (Auto) 49.1 Lymph % (Auto) 36.9 [place] % (Auto) 7.2 Eos % (Auto) 5.8 H Baso % (Auto) 0.7 Lymph # (Auto) 3.2 [place] # (Auto) 0.6 Eos # (Auto) 0.5 H Baso # (Auto) 0.1 Abs Immat Gran (auto) 0.03 Absolute Neuts (auto) 4.3 Absolute Nucleated RBC 0.000 Nucleated RBC % (auto) 0.0 ESR 4 Anion Gap 14 Estim Creat Clear Calc 108.5 Estimated GFR > 60 Random Glucose 67 Calcium 9.1 Magnesium 1.9 Total Bilirubin 0.4 Direct Bilirubin 0.2 AST 18 ALT 15 Alkaline Phosphatase 77 Troponin I High Sens < 2.7 C-Reactive Protein 0.34 B-Natriuretic Peptide < 10 Total Protein 7.2 Albumin 4.2 Imaging Radiologist's Impressions: Impressions Head CT 06/03/23 18:07 IMPRESSION: 1. Age indeterminate hypodensity in the left occipital lobe, possibly representing an infarct versus less likely intracranial neoplasm. Recommend further characterization with an MRI of the brain. 2. No intraparenchymal bleed. No extra-axial collection. 3. Mild chronic microangiopathy and generalized cerebral volume loss. 4. Paranasal sinus disease. This critical result was discussed with Judy Mi NP at 06/03/2023 6:31 PM and it was ascertained that the content and urgency of the report was understood at the time of direct communication. Head/Neck CTA 06/03/23 21:56 IMPRESSION: CT HEAD: Redemonstrated age indeterminate loss of ho-white differentiation in the left occipital lobe. Correlation with MRI is recommended. CTA NECK: Severe narrowing at the left external carotid artery origin. Otherwise, no flow-limiting stenosis in the common carotid arteries, internal carotid arteries, and cervical vertebral arteries. CTA HEAD: No proximal vessel occlusion or high-grade stenosis. Assessment and Plan (1) Left-sided headache: Status: Acute Plan This is a 53-year-old male with pertinent history of mild stroke , alcohol use disorder but not on any prescription medications who presents to the emergency department for evaluation of headache. #. Intractable left-sided headache with photophobia: ?migraine. Imaging with hypodensity in the left occipital lobe. Will admit patient for observation and obtain MRI in a.m.. Consulting Neurology, appreciate assistance. Patient states he has a history of mild stroke but is not on antiplatelet agent or high-intensity statin. #. Alcohol use disorder: Monitor CIWA. Initiating thiamine DVT prophylaxis: Lovenox Full code Quality Stroke Does the patient have a stroke diagnosis?: No VTE Prior VTE?: No VTE Risk Level:: Medical - moderate - high VTE Device Contraindication: Treatment Not Indicated VTE Drug Contraindication: N/A - Med Ordered
[2023-06-04] MEDS: Enoxaparin Sodium 40 MG/0.4 ML SYRINGE SUBCUT (00:12)
[2023-06-04] MEDS: Thiamine HCL 100 MG in 0.9 % Sodium Chloride 100 ML 202 MG IV ×2 (00:13→09:41)
[2023-06-04] MEDS: Aspirin Enteric Coated 81 MG TABLET.DR PO (00:13)
--- NOTE | 2023-06-04 00:17 | PC.NURSE ---
pt nursing swallow screen passed, pt medicated per jun, tolerated well with water. pt CIWA=0 at this time.
[2023-06-04 02:03] VITALS: BP 110/67; PULSE 69; RESP 18; TEMP 37; O2SAT 93
[2023-06-04 02:03] LABS: Appearance Urine Clear; Color Urine Yellow; Glucose Urine UA Negative (Negative); Leukocyte Esterase Urine Trace (Negative); Nitrite Urine Negative (Negative); Specific Gravity - Urine >= 1.030 (1.005-1.025); UMIC TRIGGER UACC YES; Urine Blood Negative (Negative); Urine Ketones Negative (Negative); Urine Protein Negative (Neg-Trace)
--- NOTE | 2023-06-04 02:04 | PC.NURSE ---
pt ambulated to bathroom with steady gait, denies dizziness and sob.
[2023-06-04 02:08] LABS: Bacteria Urine None Seen (None Seen); Hyaline Casts Urine 0-2 /LPF (0-2); RBC Urine 0-2 /HPF (0-2); Squamous Epithelial Cell Urine 0-2 /HPF (0-2); UACC Culture Trigger YES; WBC Urine >50 /HPF (0-5)
[2023-06-04 05:55] LABS: MANUAL DIFF FLAG NO
[2023-06-04 05:59] LABS: Basophils Absolute Auto 0.1 X10*3/uL (0.0-0.2); Basophils Percent Auto 1.2 % (0-2); Eosinophils Absolute Auto 0.6 X10*3/uL (0.0-0.4); Eosinophils Percent Auto 6.3 % (0-4); Hematocrit 46.1 % (42.0-52.0); Hemoglobin 15.7 g/dl (14.0-18.0); Imm Gran Abs Auto 0.03 X10*3/uL (0.00-0.03); Imm Gran Pct Auto 0.3 % (0.0-0.4); Lymphocytes Absolute Auto 3.3 X10*3/uL (1.2-4.9); Lymphocytes Percent Auto 35.9 % (20-40); Mean Corpuscular HGB Conc 34.1 g/dl (31.0-36.0); Mean Corpuscular Hemoglobin 32.6 pg (27.0-33.0); Mean Corpuscular Volume 95.8 fL (80.0-98.0); Mean Platelet Volume 9.2 fL (9.4-12.4); Monocytes Absolute Auto 0.9 X10*3/uL (0.1-1.2); Monocytes Percent Auto 9.5 % (2-11); Neutrophils Absolute Auto 4.3 x10*3/uL (2.0-8.3); Neutrophils Percent Auto 46.8 % (45-73); Platelet Count 290 X10*3/uL (160-400); Red Blood Count 4.81 X10*6/uL (4.60-5.80); White Blood Count 9.1 X10*3/uL (4.8-10.8)
[2023-06-04 06:16] LABS: Anion Gap 12 (12-20); Blood Urea Nitrogen 10 mg/dL (9-16); Calcium 8.4 mg/dL (8.4-10.2); Carbon Dioxide 23 mmol/L (22-29); Chloride 109 mmol/L (96-108); Creatinine Clr Calc Pharmacy 109.8; Estimated Glomerular Filt Rate > 60; Glucose Random 74 mg/dL (60-115); Potassium 3.7 mmol/L (3.3-5.1); Sodium 140 mmol/L (135-145)
[2023-06-04 06:35] VITALS: BP 115/65; PULSE 60; RESP 12; TEMP 36.8; O2SAT 95
--- NOTE | 2023-06-04 07:48 | PC.NURSE ---
assumed care of pt at 0700. pt a&o x4, calm, and cooperative. MRI screening form complete and faxed. pt with multiple body piercings. unsure if able to remove some of them. will notify MRI. rr even/unlabored. pt offers no complaints catherine. call nguyễn within reach. plan of care ongoing.
--- NOTE | 2023-06-04 08:06 | PHA.MEDREC ---
Pharmacy Consult ? Medication Reconciliation Pharmacy has completed the medication reconciliation. Spoke to patient, he said he does not take any medication except melatonin 5 mg every night.
--- NOTE | 2023-06-04 08:51 | MHC.CM.PN ---
CM met with Patient at bedside, in the ED and addressed [facility] with him, providing Patient with a copy and the original will be placed on the chart. Patient lives alone in a duplex and required no services nor DME [employer]. Home/self care is the goal and CM has initiated and will follow for dc planning. PCP is from [place].Patient's Girlfriend will transport home.
--- NOTE | 2023-06-04 09:26 | MHC.SLORD ---
Speech Language Pathology Order Status: FLAVORING MACHINE OPERATOR consult received. Per chart review, patient passed RN swallow screen and tolerated pills whole w/ water. Per [employer] Ariel, FLAVORING MACHINE OPERATOR swallow eval not needed at this time. FLAVORING MACHINE OPERATOR order cancelled. Re-refer if needed.
--- NOTE | 2023-06-04 10:23 | PC.NURSE ---
pt in MRI.
[2023-06-04] MEDS: gadobutroL 10 ML VIAL IVPUSH (11:38)
[2023-06-04 13:30] VITALS: BP 118/73; PULSE 71; RESP 16; O2SAT 97
--- NOTE | 2023-06-04 13:31 | PC.NURSE ---
Patient requesting to leave, informed patient he is currently waiting for a bed upstairs. Admitting provider notified, provider aware sttes they they are waiting on neuro to see patient. Patient made aware, still requesting to leave.
--- NOTE | 2023-06-04 13:46 | P.DS_ITS ---
DS: Providers Provider Date of Service: 06/04/23 Date of admission: 06/03/23 23:08 Primary care physician: Unknown Physician Consults: 06/03/23 22:53 Consult to Neurology Routine Consulting Provider: [facility] Reason for consultation: hypodensity in occipital lobe. headache with photophobia DS: Diagnosis Discharge Diagnosis (1) Left-sided headache: Status: Acute DS: Summary Hospital Course Hospital Course: History and physical as per admitting provider. This is a 53-year-old male with pertinent history of mild stroke , alcohol use disorder but not on any prescription medications who presents to the emergency department for evaluation of headache. Patient states he has been having left-sided headache that started 1 week prior to presentation. It has been constant and progressive over the last 7 days. No history of similar headaches previously. Also has associated nausea and sensitivity to bright light. He denies any visual symptoms. No focal extremity weakness. No speech deficits or facial droop. Patient states that about 2 months ago, in March 2023 he was at [facility] and he was diagnosed with minor stroke but he was not discharged on any prescription medications. Patient states he was sober since March but had 1 drink 1 day prior to presentation. Does not feel like he would withdrawal from alcohol. Denies illicit drug use. No fever, chills, chest discomfort, palpitations, shortness of breath, abdominal pain, changes in urinary or bowel habits. In the emergency department, imaging with hypodensity in the left occipital lobe, infarct versus intracranial neoplasm. CTA with narrowing at the left external carotid artery origin. LEFT AMA 53-year-old man presenting with left-sided headache and photophobia. Patient had MRI which was negative for any acute abnormality but did show sinus disease. Reports history of allergies as well. Unfortunately he decided to leave against medical advice, it was discussed that he had not completed treatment as he had not seen a neurologist but he reported that ?I have spent enough time here?. Discussed the importance of following up with ENT for sinus disease, may use saline nasal spray, humidification and home. Patient reported to symptoms worsen he can return to the ER any time. He can also follow up with his primary care provider. Alcohol use disorder. Discussed importance of cessation Time Attestation Discharge coordination time: Greater than 30 minutes Quality: Safe Use of Opioids Does Pt have an Active Cancer Diagnosis on the Problem List?: No Quality: Stroke Does the patient have a stroke diagnosis?: No Physical Exam Vital Signs: Vital Signs: Last Vital Signs Temp 98.2 F 06/04/23 06:35 Pulse 71 06/04/23 13:30 Resp 16 06/04/23 13:30 BP 118/73 06/04/23 13:30 Pulse Ox 97 06/04/23 13:30 O2 Del Method Room Air 06/04/23 13:30 BMI result Body Mass Index 32.3 Appearing in no acute distress head is normocephalic atraumatic eyes pupils are PERRLA sclera is anicteric mouth throat mucous membranes are intact and moist neck is supple no lymphadenopathy, no JVD noted lung sounds are clear to auscultation heart regular rate rhythm, clear S1, S2 positive bowel sounds, abdomen is soft, nontender neuro patient is alert x3, no focal deficits DS: Data Data Completed and Pending Labs on day of discharge: Laboratory Results - last 24 hr 06/03/23 06/04/23 06/04/23 21:25 01:57 04:58 WBC 8.7 9.1 RBC 5.20 4.81 Hgb 16.8 15.7 Hct 48.7 46.1 MCV 93.7 95.8 MCH 32.3 32.6 MCHC 34.5 34.1 RDW 15.9 16.0 Plt Count 277 290 MPV 8.5 L 9.2 L Immature Gran % (Auto) 0.3 0.3 Neut % (Auto) 49.1 46.8 Lymph % (Auto) 36.9 35.9 [place] % (Auto) 7.2 9.5 Eos % (Auto) 5.8 H 6.3 H Baso % (Auto) 0.7 1.2 Lymph # (Auto) 3.2 3.3 [place] # (Auto) 0.6 0.9 Eos # (Auto) 0.5 H 0.6 H Baso # (Auto) 0.1 0.1 Abs Immat Gran (auto) 0.03 0.03 Absolute Neuts (auto) 4.3 4.3 Absolute Nucleated RBC 0.000 0.000 Nucleated RBC % (auto) 0.0 0.0 ESR 4 Sodium 141 140 Potassium 4.0 3.7 Chloride 106 109 H Carbon Dioxide 25 23 Anion Gap 14 12 BUN 7 L 10 Creatinine 0.83 0.82 Estim Creat Clear Calc 108.5 109.8 Estimated GFR > 60 > 60 Random Glucose 67 74 Calcium 9.1 8.4 D Magnesium 1.9 Total Bilirubin 0.4 Direct Bilirubin 0.2 AST 18 ALT 15 Alkaline Phosphatase 77 Troponin I High Sens < 2.7 C-Reactive Protein 0.34 B-Natriuretic Peptide < 10 Total Protein 7.2 Albumin 4.2 Urine Color Yellow Urine Appearance Clear Urine pH 6.0 Ur Specific [place] >= 1.030 H Urine Protein Negative Urine Glucose (UA) Negative Urine Ketones Negative Urine Blood Negative Urine Nitrite Negative Ur Leukocyte Esterase Trace H Urine RBC 0-2 Urine WBC >50 H Ur Squamous Epith Cells 0-2 Urine Bacteria None Seen Hyaline Casts 0-2 Discharge Plan Discharge Anticipated Discharge Date/Time: 06/04/23 13:44 Patient Disposition: Left Against Medical Advice Discharge Diagnosis: Sinus headache Discharge Medications: Continued melatonin 5 mg Tablet 5 mg PO BEDTIME Discharge Orders: Discharge Order (Routine); Ordered 06/04/23 Ordered By: Farrah George Diet: Advance to usual diet Activity on Discharge: As tolerated Stand Alone Forms: Against Medical Advice Care Plan Goals: Left against medical advice Can use saline nasal spray Claritin for allergies Humidification in the home Cut down on using tobacco Health Concerns: Sinus headache Plan of Treatment: Follow-up with an ear nose and throat doctor regarding sinusitis Assessment: See discharge summary
--- NOTE | 2023-06-04 13:50 | MHC.CM.PN ---
Per [employer]APANESE PROFESSOR documentation, Patient has left AMA.
--- NOTE | 2023-06-04 14:24 | PC.NURSE ---
Inpatient provider Farrah informed that patient has signed AMA form and has left, requested to stop by and sign physician part of AMA form via tiger text. Farrah responded I don't need to sign it, anyone can sign it actually, you witnessed so you can sign, I already completed ama dc in the med rec.
--- NOTE | 2023-06-04 15:20 | PM.NEUROCN ---
History of Present Illness Data of Consult Service Date: 06/04/23 Primary Care Provider: Unknown Physician HPI Reason for consult: Headache This is a 53-year-old male with pertinent history of mild stroke , alcohol use disorder but not on any prescription medications who presents to the emergency department for evaluation of headache. Patient states he has been having left-sided headache that started 1 week prior to presentation. It has been constant and progressive over the last 7 days. No history of similar headaches previously. Also has associated nausea and sensitivity to bright light. He denies any visual symptoms. No focal extremity weakness. No speech deficits or facial droop. Patient states that about 2 months ago, in March 2023 he was at [facility] and he was diagnosed with minor stroke but he was not discharged on any prescription medications. Patient states he was sober since March but had 1 drink 1 day prior to presentation. Does not feel like he would withdrawal from alcohol. Denies illicit drug use. No fever, chills, chest discomfort, palpitations, shortness of breath, abdominal pain, changes in urinary or bowel habits. Review of Systems Review of Systems: Yes all other systems are reviewed and are negative Constitutional: Constitutional: Reports no additional constitutional complaints and Reports headache(s) ENT: Reports headache(s) Cardiovascular: Cardiovascular: Reports no additional cardiovascular complaints Respiratory: Respiratory: Reports no additional respiratory complaints Gastrointestinal: Gastrointestinal: Reports no additional gastrointestinal complaints Genitourinary: Genitourinary: Reports no additional male genitourinary complaints Neurologic: Reports headache(s) [facility] Past Medical History Medical History Alcohol use disorder No known health problems Family History Pertinent family history: No family history of early CAD Social History Social History Alcohol intake: former Patient Tobacco Use Status: Never used Tobacco service: No Meds Allergies Allergy/AdvReac Type Severity Reaction Status Date / Time UNKNOWN ANTIBIOTIC Allergy Unknown Hives Uncoded 06/03/23 17:31 Active Medications: Current Medications Acetaminophen (Acetaminophen 325 Mg Tablet) 650 mg PO Q6H PRN PRN Reason: Pain, Mild (Pain Scale 1-3) Enoxaparin Sodium (Enoxaparin Sodium 40 Mg/0.4 Ml Syringe) 40 mg SUBCUT Q24H FIONA Last Admin: 06/04/23 00:12 Dose: 40 mg Thiamine HCl 100 mg/ Sodium (Chloride) 101 mls @ 202 mls/hr IV DAILY [facility] Last Infusion: 06/04/23 11:55 Dose: Infused Melatonin (Melatonin 3 Mg Tablet) 6 mg PO BEDTIME PRN PRN Reason: Insomnia Ondansetron HCl (Ondansetron Hcl 4 Mg/2 Ml Vial) 4 mg IVPUSH Q8H PRN PRN Reason: Nausea and Vomiting Sodium Chloride (0.9 % Sodium Chloride Flush 3 Ml Syringe) 3 ml IVFLUSH QSHIFT [facility] Last Admin: 06/04/23 07:08 Dose: Not Given Home Medications Medication Instructions Recorded Confirmed Last Taken Type melatonin 5 mg tablet 5 mg PO BEDTIME 06/04/23 06/04/23 06/02/23 History Physical Exam Vital Signs: Vital Signs: Last Vital Signs Temp 98.2 F 06/04/23 06:35 Pulse 71 06/04/23 13:30 Resp 16 06/04/23 13:30 BP 118/73 06/04/23 13:30 Pulse Ox 97 06/04/23 13:30 O2 Del Method Room Air 06/04/23 13:30 BMI result Body Mass Index 32.3 Const: Other: The patient is awake and alert. He looks old for his age. He does not seem in obvious distress. He is pleasant cooperative. HEENT: Other: Face is symmetrical. Tongue is midline. Eyes: Other: Anisocoria is present. The right pupil is larger than the left pupil. This is more apparent in dark light. With bright lights both pupils are small. The left pupil does not seem to dilate with darkness. No apparent ptosis. Extraocular movements are intact. Visual marinelli are intact to confrontation Neck: Other: No JVD, no neck tenderness, no bruits Resp: Effort & Inspection: normal respiratory effort Auscultation: clear to auscultation bilaterally Cardio: Rate: regular rate Rhythm: regular rhythm Heart sounds: S1 normal heart sound present and S2 normal heart sound present GI: Other: Abdomen is soft and nontender Skin: Other: Skin is soft and nontender Neuro: Other: No exam performed as patient left AMA Extrem: Other: No peripheral edema Results Labs 06/04/23 04:58 06/04/23 04:58 Labs: Short CBC 06/03/23 06/04/23 Range/Units 21:25 04:58 WBC 8.7 9.1 (4.8-10.8) X10*3/uL Hgb 16.8 15.7 (14.0-18.0) g/dl Hct 48.7 46.1 (42.0-52.0) % Plt Count 277 290 (160-400) X10*3/uL BMP 06/03/23 06/04/23 21:25 04:58 Sodium 141 140 Potassium 4.0 3.7 Chloride 106 109 H Carbon Dioxide 25 23 BUN 7 L 10 Creatinine 0.83 0.82 Calcium 9.1 8.4 D Liver Function 06/03/23 Range/Units 21:25 Total Bilirubin 0.4 (0.0-1.0) mg/dL Direct Bilirubin 0.2 (0.0-0.5) mg/dL AST 18 (5-37) U/L ALT 15 (0-40) U/L Alkaline Phosphatase 77 (39-117) U/L Albumin 4.2 (3.5-5.0) g/dL Urine 06/04/23 Range/Units 01:57 Urine Color Yellow Urine Appearance Clear Urine pH 6.0 (5.0-9.0) Ur Specific [place] >= 1.030 H (1.005-1.025) Urine Protein Negative (Neg-Trace) mg/dL Urine Glucose (UA) Negative (Negative) mg/dL Assessment and Plan (1) Left-sided headache: Status: Acute Headache, probably related to sinusitis seen on MRI, particularly ethmoid sinusitis. Old left occipital infarct with negative CTA. External carotid artery stenosis of no clinical significance. Recommendation: Treat sinusitis with appropriate antibiotics. Plan This is a 53-year-old male with pertinent history of mild stroke , alcohol use disorder but not on any prescription medications who presents to the emergency department for evaluation of headache. #. Intractable left-sided headache with photophobia: ?migraine. Imaging with hypodensity in the left occipital lobe. Will admit patient for observation and obtain MRI in a.m.. Consulting Neurology, appreciate assistance. Patient states he has a history of mild stroke but is not on antiplatelet agent or high-intensity statin. #. Alcohol use disorder: Monitor CIWA. Initiating thiamine DVT prophylaxis: Lovenox Full code Procedures Date of Service Date of Service: 06/04/23
--- NOTE | 2023-06-05 11:32 | MHC.CM.PN ---
PT WILL DC HOME TODAY WITH NO SERVICES S/O TO TRANSPORT
--- NOTE | 2023-06-06 08:28 | MHC.CM.PN ---
Patient has left AMA.
== END 2023-06-06 07:57 | disposition left against medical advice (07) ==
LOC: HO.ED 23:03 → HO.EDOVER 23:17
PROVIDERS: Admitting Provider Student in an Organized Health Care Education/Training Program; Emergency Provider Emergency Medicine; Visit Provider Physician Assistant Medical
DX: R51.9 Headache, unspecified (principal); H53.149 Visual discomfort, unspecified; I70.90 Unspecified atherosclerosis; F10.90 Alcohol use, unspecified, uncomplicated; J32.9 Chronic sinusitis, unspecified; R11.0 Nausea; Z86.73 Personal history of transient ischemic attack (TIA), and cerebral infarction without residual deficits; Z79.899 Other long term (current) drug therapy
CPT/HCPCS: 36415; 70450; 70496; 70498; 70553; 80048; 80076; 81001; 83735; 83880; 84484; 85025; 85652; 86140; 87086; 93005; 96361; 96365; 96366; 96372; 96375; 99222; 99285; A9585; J0737; J1200; J1650; J3411; Q9967

== ENCOUNTER → 2023-06-03 21:11 | Outpatient (BNV) | payer OTHER, SELFPAY | PROVIDERS: Admitting Provider Student in an Organized Health Care Education/Training Program; Emergency Provider Emergency Medicine; Visit Provider Internal Medicine | DX: R51.9 Headache, unspecified (principal) | CPT/HCPCS: 93010 ==

== ENCOUNTER → 2023-06-03 23:08 | Outpatient (BNV) | payer OTHER, SELFPAY | PROVIDERS: Admitting Provider Student in an Organized Health Care Education/Training Program; Emergency Provider Emergency Medicine; Visit Provider Student in an Organized Health Care Education/Training Program | DX: R51.9 Headache, unspecified (principal); F10.99 Alcohol use, unspecified with unspecified alcohol-induced disorder; Z53.29 Procedure and treatment not carried out because of patient's decision for other reasons | CPT/HCPCS: 99222; 99238 ==

== ENCOUNTER → 2023-06-03 23:08 | Outpatient (BNV) | payer OTHER, SELFPAY | PROVIDERS: Admitting Provider Student in an Organized Health Care Education/Training Program; Emergency Provider Emergency Medicine; Visit Provider Psychiatry & Neurology Neurology | DX: R51.9 Headache, unspecified (principal) | CPT/HCPCS: 99282 ==